=== PATIENT | female | born 1945 | race Caucasian/White ===

== ENCOUNTER 2018-10-07 09:17 | Day surgery (SDC) | payer MEDICARE, OTHER ==
[~2018-10-07] VITALS: Ht 160 cm; Wt 59.0 kg
[~2018-10-07 09:17] MED LIST: ASPI81TA26 PO; LEVO50TA5 PO; ROSU20TA5 PO; VITA50005 PO
[2018-10-07] MEDS: NS 1,000 ML IV ONE (09:53)
[2018-10-07] MEDS ORDERED: PROPOFOL 200 MG/20 ML VIAL As Ordered ONE (09:57)
[2018-10-07] MEDS ORDERED: LIDOCAINE 2% INJ 100 MG/5 ML SDV (FOR ANES.) As Ordered ONE (09:57)
--- NOTE | 2018-10-07 10:53 | ROOR ---
Patient Name: Heather Leach Procedure Date: 10/07/2018 10:24 AM Date of : 1945 Age: 73 Room: [facility] Gender: Female Note Status: Finalized Procedure: Total Colonoscopy to Cecum Indications: Screening for colorectal malignant neoplasm Providers: Isaac Cordon MD Referring MD: ANDRE DE LA ROSA MD Requesting Provider: Medicines: Monitored Anesthesia Care Complications: No immediate complications. Procedure: Pre-Anesthesia Assessment: - The heart rate, respiratory rate, oxygen saturations, blood pressure, adequacy of pulmonary ventilation, and response to care were monitored throughout the procedure. The Colonoscope was introduced through the anus and advanced to the cecum, identified by appendiceal orifice and ileocecal valve. The colonoscopy was performed without difficulty. The patient tolerated the procedure well. The quality of the bowel preparation was good. Findings: The perianal and digital rectal examinations were normal. Non-bleeding internal hemorrhoids were found during retroflexion. The hemorrhoids were Grade I (internal hemorrhoids that do not prolapse). Scattered small-mouthed diverticula were found in the recto-sigmoid colon, sigmoid colon and descending colon. The exam was otherwise without abnormality on direct and retroflexion views. Impression: - Non-bleeding internal hemorrhoids. - Diverticulosis in the recto-sigmoid colon, in the sigmoid colon and in the descending colon. - The examination was otherwise normal on direct and retroflexion views. - No specimens collected. - The exam was otherwise normal to the cecum. Recommendation: - Patient has a contact number available for emergencies. The signs and symptoms of potential delayed complications were discussed with the patient. Return to normal activities tomorrow. Written discharge instructions were provided to the patient. - Resume previous diet. - Continue present medications. - Repeat colonoscopy for symptoms only. - Return to referring physician. - The findings and recommendations were discussed with the patient's family. Isaac Cordon MD Isaac Cordon MD 10/07/2018 10:53:46 AM Electronically signed by Isaac Cordon MD Number of Addenda: 0 Note Initiated On: 10/07/2018 10:24 AM Estimated Blood Loss: Estimated blood loss: none.
[2018-10-07 11:10] VITALS: BP 116/81
== END 2018-10-07 11:21 | disposition home or self-care (01) ==
LOC: M OPP 09:17
PROVIDERS: ATTEND Internal Medicine Gastroenterology
DX: Z12.11 Encounter for screening for malignant neoplasm of colon (principal); K64.0 First degree hemorrhoids; K57.30 Diverticulosis of large intestine without perforation or abscess without bleeding; Z79.82 Long term (current) use of aspirin; Z79.899 Other long term (current) drug therapy

== ENCOUNTER 2020-11-22 15:43 | Inpatient (IN) | payer MEDICARE, OTHER ==
[~2020-11-22] VITALS: Ht 160 cm; Wt 62.7 kg
[2020-11-22] MEDS ORDERED: PIPERACILLIN/TAZOBACTAM SOD 3.375 GM in D5W MINI-BAG PLUS 50 ML IV SCH (18:00)
[2020-11-22 18:19] VITALS: BP 131/74
[2020-11-22] MEDS ORDERED: ONDANSETRON 4MG/2ML VIAL IV PRN (18:30)
[2020-11-22] MEDS ORDERED: ACETAMINOPHEN TAB 650MG DOSE (2X325MG) PO PRN (18:30)
[2020-11-22] MEDS ORDERED: NS 1,000 ML IV SCH (18:30)
[2020-11-22] MEDS ORDERED: MORPHINE 2 MG/ML 1ML VIAL (J2270) IV PRN (18:35)
[2020-11-22 19:42] LABS: HEMATOCRIT 35.8 % (36.0-47.0); HEMOGLOBIN 11.7 g/dl (12.0-15.5); MEAN CORPUSCULAR HEMOGLOBIN 29.3 pg (27.0-33.0); MEAN CORPUSCULAR HGB CONC 32.7 g/dl (32.0-36.5); MEAN CORPUSCULAR VOLUME 89.7 fl (80.0-96.0); PLATELET COUNT, AUTOMATED 291 10^3/uL (150-450); RED BLOOD COUNT 3.99 10^6/uL (4.00-5.40); WHITE BLOOD COUNT 6.4 10^3/uL (4.0-10.0)
[2020-11-22 20:02] LABS: ALBUMIN 3.3 GM/DL (3.2-5.2); ALT/SGPT 20 U/L (12-78); BILIRUBIN,TOTAL 0.4 MG/DL (0.2-1.0); BLOOD UREA NITROGEN 15 MG/DL (7-18); CALCIUM LEVEL 9.2 MG/DL (8.8-10.2); CARBON DIOXIDE LEVEL 24 MEQ/L (21-32); CHLORIDE LEVEL 107 MEQ/L (98-107); CREATININE FOR GFR 0.83 MG/DL (0.55-1.30); GLOMERULAR FILTRATION RATE > 60.0 (>39); GLUCOSE, FASTING 71 MG/DL (70-100); NT-PRO BNP 83 PG/ML (<125); POTASSIUM SERUM 4.1 MEQ/L (3.5-5.1); SODIUM LEVEL 139 MEQ/L (136-145); TOTAL PROTEIN 6.7 GM/DL (6.4-8.2)
[2020-11-22 21:00] VITALS: BP 144/64
[2020-11-22] MEDS ORDERED: ROSUVASTATIN 10 MG TAB (CRESTOR) PO SCH (21:00)
[2020-11-22] MEDS ORDERED: KETOROLAC 30 MG/ML 1ML VIAL IV PRN (21:05)
[2020-11-22] MEDS: PIPERACILLIN/TAZOBACTAM SOD 3.375 GM in D5W MINI-BAG PLUS 50 ML IV SCH (21:37)
[2020-11-23] MEDS ORDERED: UNRESOLVED CLARIFICATION ENTRY XX SCH (00:01)
[2020-11-23] MEDS ORDERED: ROSU20TA5 PO (00:10)
[2020-11-23] MEDS ORDERED: METR-265 PO (00:10)
[2020-11-23] MEDS ORDERED: SYNT75TA PO (00:10)
[2020-11-23] MEDS ORDERED: ERGO500029 PO (00:10)
[2020-11-23] MEDS ORDERED: ASPI-161 PO (00:10)
[2020-11-23] MEDS ORDERED: CIPR750T2 PO (00:10)
[2020-11-23] MEDS ORDERED: OYST500T91 PO (00:11)
[2020-11-23] MEDS ORDERED: ESSE250T PO (00:11)
[2020-11-23] MEDS ORDERED: HOME MED LIST COMPLETE! XX SCH (00:15)
--- NOTE | 2020-11-23 02:15 | HPEPDOC ---
General Date of Admission Nov 22, 2020 at 17:54 Date of Service: Nov 22, 2020 Chief Complaint abdominal pain Source: Patient History of Present Illness Ms. Treviño is a 75-year-old female with significant medical history of hypothyroidism, hyperlipidemia, diverticulosis and anemia who presents with abdominal pain/diverticulitis via direct admit. Patient reports that she has been at baseline until Friday she started having sensations of stomach pain and loose stool which escalated over the weekend. Patient describes the abdominal pain as generalized cramping with lower mid to left abdominal tenderness. She reports she has had "too many to count" episodes of diarrhea and even episodes of nocturnal stool incontinence as symptoms have escalated. Patient diagnosed w ith diverticulitis by her provider in order for p.o. antibiotics placed. Patient reports there was a delay in her getting p.o. antibiotics and that she was able to start them the following day with pharmacy availability. She reports that she has taken pills and reported no further diarrhea however - because she was having more stomach pains-she felt she was encouraged by provider to come in for IV antibiotics. Of note, patient without leukocytosis. She is normotensive, not tachycardic and afebrile. Home Medications Scheduled Aspirin (Aspirin EC) 81 Mg Tablet.dr, 81 MG PO QWEEK, (Reported) Calcium Carbonate/Vitamin D3 (Calcium 500-Vit D3 200 Tablet) 1 Each Tablet, 1 TAB PO DAILY, (Reported) Cefdinir (Cefdinir) 300 Mg Capsule, 300 MG PO BID Ergocalciferol (Vitamin D2) (Vitamin D2) 50,000 Units Cap, 50,000 UNITS PO QWEEK, (Reported) MONDAYS Levothyroxine Sodium (Synthroid) 75 Mcg Tablet, 75 MCG PO DAILY, (Reported) Magnesium Oxide (Magnesium Oxide) 250 Mg Tablet, 250 MG PO DAILY, (Reported) Metronidazole (Metronidazole) 500 Mg Tablet, 500 MG PO Q8H, (Reported) STARTED ON 11/20/20 Metronidazole (Flagyl) 500 Mg Tablet, 500 MG PO Q8H Rosuvastatin Calcium (Rosuvastatin Calcium) 20 Mg Tablet, 20 MG PO QHS, (Reported) Allergies Coded Allergies: No Known Allergies (Unverified , 09/29/18) Past Medical History Medical History hypothyroid, anemia, HDL, diverticulosis Surgical History tonsillectomy, hysterectomy Family History Significant Family History: Cancer Daughter- Ovarian cancer Social History * Smoker: Denies Alcohol: Denies Drugs: denies Psychosocial History: No pertinent psych hx A-FIB/CHADSVASC A-FIB History Current/History of A-Fib/PAF?: No Current PO Anticoag Therapy: No Review of Systems Constitutional: Reports: Fever, Malaise, Weakness, Fatigue; Denies: Chills, Night Sweats Eyes: Denies: Pain, Vision change ENT: Denies: Head Aches, Ear Pain, Dysphagia Skin: Denies: Rash, Lesions, Breakdown Pulmonary: Denies: Dyspnea, Cough Cardiovascular: Denies: Chest Pain, Palpitations, Orthopnea, Paroxysmal Noc. Dyspnea, Lt Headedness Gastrointestinal: Reports: Nausea, Abdominal Pain, Diarrhea; Denies: Vomiting Genitourinary: Denies: Dysuria, Frequency, Incontinence, Retention Hematologic: Denies: Bruising, Bleeding Excessively Musculoskeletal: Denies: Neck Pain, Back Pain, Joint Pain, Muscle Pain, Spasms Neurological: Denies: Weakness, Numbness, Change in speech, Confusion Psych: Reports: Mood Normal; Denies: Depression, Memory Issues Physical Examination General Exam: Positive: Alert, Cooperative, No Acute Distress Eye Exam: Positive: PERRLA, Conjunctiva & lids normal, EOMI; Negative: Sclera icteric ENT Exam: Positive: Atraumatic, Mucous membr. moist/pink, Pharynx Normal Neck Exam: Positive: Supple; Negative: JVD, thyromegaly Chest Exam: Positive: Clear to auscultation, Normal air movement Heart Exam: Positive: Rate Normal, Regular Rhythm, Normal S1, Normal S2; Negative: Murmurs, Rubs Telemetry: Positive: No significant arrhythmia Abdomen Exam: Positive: BS Hyperactive, Soft, Tenderness; Negative: Hepatospenomegaly Extremity Exam: Positive: Normal pulses; Negative: Clubbing, Cyanosis, Edema Skin Exam: Positive: Nl turgor and temperature; Negative: Breakdown, Lesion Neuro Exam: Positive: Normal Gait, Normal Speech, Cranial Nerves 3-12 NL, Reflexes 2+ Psych Exam: Positive: Mental status NL, Mood NL, Oriented x 3 Vital Signs Temp 98.6, 98% room air, respiratory rate 18, heart rate 77, blood pressure 144/60 Assessment/Plan 1. Acute Diverticulitis: -Monitor for worsening signs symptoms of infection -Empiric coverage -IV hydration with consideration -Clear liquid diet with advancement as tolerated -Symptom management/supportive care with antiemetics and analgesics -A.m. lab -Consider GI versus surgical consult if patient without improvement 2. Hypothyroid: Continue levothyroxine 3. Anemia: Hemoglobin 11.7/hematocrit 35.8. Patient reports history of anemia but uncertain regarding typical levels. Denies any blood in stool. -Will check anemia panel. -A.m. labs 4. Hyperlipidemia: Continue statin DVT Px: SCD CODE STATUS: Full code Dispo planning: Home once tolerating p.o. antibiotics can be deescalated Plan / VTE VTE Prophylaxis Ordered?: Yes JESICA POST NP Nov 22, 2020 18:52 HARSHA HACKETT MD Nov 24, 2020 05:54
[2020-11-23] MEDS: PIPERACILLIN/TAZOBACTAM SOD 3.375 GM in D5W MINI-BAG PLUS 50 ML IV SCH (04:42)
[2020-11-23 06:00] VITALS: BP 103/66
[2020-11-23] MEDS ORDERED: LEVOTHYROXINE 75MCG TABLET (0.075MG) PO SCH (06:00)
[2020-11-23 06:05] LABS: HEMATOCRIT 34.8 % (36.0-47.0); HEMOGLOBIN 11.4 g/dl (12.0-15.5); MEAN CORPUSCULAR HEMOGLOBIN 29.7 pg (27.0-33.0); MEAN CORPUSCULAR HGB CONC 32.8 g/dl (32.0-36.5); MEAN CORPUSCULAR VOLUME 90.6 fl (80.0-96.0); PLATELET COUNT, AUTOMATED 274 10^3/uL (150-450); RED BLOOD COUNT 3.84 10^6/uL (4.00-5.40); WHITE BLOOD COUNT 5.5 10^3/uL (4.0-10.0)
[2020-11-23 06:22] LABS: BLOOD UREA NITROGEN 14 MG/DL (7-18); CALCIUM LEVEL 8.8 MG/DL (8.8-10.2); CARBON DIOXIDE LEVEL 25 MEQ/L (21-32); CHLORIDE LEVEL 110 MEQ/L (98-107); CREATININE FOR GFR 0.94 MG/DL (0.55-1.30); GLOMERULAR FILTRATION RATE > 60.0 (>39); GLUCOSE, FASTING 71 MG/DL (70-100); POTASSIUM SERUM 3.7 MEQ/L (3.5-5.1); SODIUM LEVEL 141 MEQ/L (136-145)
[2020-11-23 06:29] LABS: PERCENT SATURATION 38.1 % (13.2-45.0)
[2020-11-23 06:33] LABS: ATYPICAL LYMPH 2 % (0-5); EOSINOPHILS 1 % (0-3); LYMPHOCYTES 50 % (16-44); MONOCYTES 2 % (0-5); NEUTROPHILS 45 % (28-66)
[2020-11-23 06:34] LABS: PLATELET ESTIMATE NORMAL (NORMAL)
[2020-11-23 08:00] VITALS: BP 110/68
[2020-11-23] MEDS ORDERED: LACTOBACILLUS ACIDOPHILUS CAP (BACID) PO SCH (08:00)
[2020-11-23] MEDS: metroNIDAZOLE (FLAGYL) 500MG TABLET PO SCH ×2 (08:44→14:27)
[2020-11-23] MEDS ORDERED: PANTOPRAZOLE 40MG VIAL (C9113 PER 1) IV SCH (09:00)
[2020-11-23] MEDS ORDERED: CEFDINIR 300 MG CAP (OMNICEF) PO SCH (09:00)
[2020-11-23] MEDS ORDERED: CALCIUM/VITAMIN D 500 MG TAB PO SCH (09:00)
[2020-11-23] MEDS ORDERED: ASPIRIN 81MG ENTERIC TABLET PO SCH (09:00)
[2020-11-23 10:33] LABS: FOLATE 18.8 NG/ML (>5.4)
[2020-11-23 10:59] LABS: C REACTIVE PROTEIN QUANTITATIV 4.39 MG/DL (0.00-0.30)
[2020-11-23] MEDS ORDERED: FLAG500T PO (11:01)
[2020-11-23] MEDS ORDERED: CEFD300CAP PO (11:01)
[2020-11-23 12:00] VITALS: BP 116/78
[2020-11-23 13:22] LABS: C REACTIVE PROTEIN QUANTITATIV 7.01 MG/DL (0.00-0.30)
[2020-11-23 14:00] VITALS: BP 115/55
--- NOTE | 2020-11-23 14:57 | DS.PDOC ---
Discharge Summary General Date of Admission Nov 22, 2020 at 17:54 Date of Discharge November 23, 2020 Attending Physician: KAYLEY RUIZ MD Discharge Summary PROCEDURES PERFORMED DURING STAY: None. ADMITTING/DISCHARGE DIAGNOSES: - Diverticulitis - Hypothyroidism - Anemia - Hyperlipidemia - H/o diverticulosis COMPLICATIONS/CHIEF COMPLAINT: Abdominal pain and diarrhea; direct admission for diverticulitis. HISTORY OF PRESENT ILLNESS: Ms. Leach is a 75-year-old female with a h/o diverticulosis, hyperthyroidism, HLD, and chronic anemia presented with lethargy, abdominal pain, and profuse, watery diarrhea. Per patients PCP, outpatient CT abd/pelvis resulted diverticulitis. She was given PO Cipro and Flagyl. She only took 1 pill each before coming to the ED. Patient was directed admitted and switched to IV Zosyn. Toradol and morphine were ordered for pain as needed. She was seen at bedside by the hospitalist service. She reports lethargy and mild lower abdominal pain. She has some flatulence but still reports small amounts of loose stool. She denies fever, chills, headache, cough, SOB, CP, palpitations, N/V, dysphagia, hematuria, dysuria, pyuria, and hematochezia. HOSPITAL COURSE: # Diverticulitis -Patient presented with lower abdominal pain and diarrhea, but she is afebrile and nontender to abdominal palpation. She took PO Cipro and Flagyl 1X. -She also has h/o diverticulosis that was found on outpatient routine colonoscopy -CRP 4.39 downtrended since admission; admin CRP 7.01 -C/w acetaminophen as needed for pain. -Advance diet as tolerated. -Patient is encouraged to increase oral hydration. -Switched from IV zosyn to PO cefdinir and flagyl. PO abx should be continued outpatient for 9 days. -F/u within 7 days with PCP upon discharge. # H/o diverticulosis -Per patient, diverticulosis was discovered on routine outpatient colonoscopy. -Should f/u outpatient with PCP as necessary. # Hypothyroidism -C/w home Synthroid -Should f/u outpatient with PCP as necessary. # HLD -C/w home rosuvastatin -Should f/u outpatient with PCP as necessary. # Chronic anemia of unknown origin -Reported h/o anemia of unknown origin. -RBC 3.84, Hgb 11.4, Hct 34.8 -Should f/u outpatient with PCP for full workup. DISCHARGE MEDICATIONS: Please see below. ALLERGIES: Please see below. PHYSICAL EXAMINATION ON DISCHARGE: VITAL SIGNS: Please see below. GENERAL APPEARANCE: Patient is a pleasant elderly female lying in bed in no acute distress. HEENT: NC, AT. PERRLA, EOMI. Sclera non-icteric. Mucus membranes moist. Uvula is midline. CARDIOVASCULAR: RRR. No obvious murmurs, rubs, or gallops. LUNGS: Clear to auscultation bilaterally. No wheezing, rales, or rhonchi heard. ABDOMEN: Soft abdomen, nontender to palpation in all 4 quadrants. Positive bowel sounds. EXTREMITIES: Radial, dorsalis pedis, and posterior tibialis pulses appreciated bilaterally. No LE edema appreciated. Nontender to palpation bilaterally. PSYCHIATRIC: Mood appears stable. LABORATORY DATA: Please see below. IMAGING: None PROGNOSIS: Fair ACTIVITY: As tolerated DIET: As tolerated DISCHARGE PLAN: - Please complete 9-day course of Cefdinir 300mg PO BID and Flagyl 500mg PO Q8H for diverticulitis. - Please c/w home medications as indicated. - Please continue oral hydration and rest. - Please f/u with PCP within 7 days for diverticulitis resolution. - Please return to the hospital if symptoms worsen or if new symptoms develop. DISCHARGE INSTRUCTIONS: - Please complete 9-day course of Cefdinir 300mg PO BID and Flagyl 500mg PO Q8H for diverticulitis. - Please c/w home medications as indicated. - Please continue oral hydration and rest. - Please f/u with PCP within 7 days for diverticulitis resolution. - Please return to the hospital if symptoms worsen or if new symptoms develop. ITEMS TO FOLLOWUP ON ON OUTPATIENT: - Diverticulitis - Abx compliance - Anemia workup as necessary - F/u h/o diverticulosis, hypothyroidism, HLD, chronic anemia as necessary with PCP DISCHARGE CONDITION: Stable TIME SPENT ON DISCHARGE: 30 minutes. Vital Signs/I&Os Vital Signs Date Time Temp Pulse Resp B/P (MAP) Pulse Ox O2 Delivery O2 Flow Rate FiO2 11/23/20 12:00 98.3 76 18 116/78 (91) 98 Room Air I&O- Last 24 Hours up to 6 AM 11/23/20 06:00 Intake Total 700 ml Output Total 300 ml Balance 400 ml Laboratory Data Labs 24H Laboratory Tests 2 11/22/20 19:21: Nucleated Red Blood Cells % (auto) 0.0, Anion Gap 8, Glomerular Filtration Rate > 60.0, Lactic Acid Level 0.8, Calcium Level 9.2, Magnesium Level 2.0, Total Bilirubin 0.4, Aspartate Amino Transf (AST/SGOT) 15, Alanine Aminotransferase (ALT/SGPT) 20, Alkaline Phosphatase 40L, C-Reactive Protein, Quantitative 7.01H, IU-Bbr-K-Type Natriuretic Peptide 83, Total Protein 6.7, Albumin 3.3, Albumin/Globulin Ratio 1.0L 11/23/20 05:47: Nucleated Red Blood Cells % (auto) 0.0, Anion Gap 6L, Glomerular Filtration Rate > 60.0, Calcium Level 8.8, C-Reactive Protein, Quantitative 4.39H, Neutrophils (%) (Auto) , Neutrophils 45, Lymphocytes (Manual) 50H, Monocytes (Manual) 2, Eosinophils (Manual) 1, Atypical Lymphocytes 2, Red Blood Cell Morphology NORMAL , Platelet Estimate NORMAL, Iron Level 64, Total Iron Binding Capacity 168L, Transferrin % Saturation 38.1, Ferritin 223, Vitamin B12 Level 1536H, Folate 18.8 11/23/20 11:12: Coronavirus (COVID-19)(PCR) NEGATIVE CBC/BMP Laboratory Tests 11/22/20 19:21 11/23/20 05:47 Microbiology Microbiology 11/22/20 Blood Culture, Received Pending Discharge Medications Scheduled Aspirin (Aspirin EC) 81 Mg Tablet.dr, 81 MG PO QWEEK, (Reported) Calcium Carbonate/Vitamin D3 (Calcium 500-Vit D3 200 Tablet) 1 Each Tablet, 1 TAB PO DAILY, (Reported) Cefdinir (Cefdinir) 300 Mg Capsule, 300 MG PO BID Ergocalciferol (Vitamin D2) (Vitamin D2) 50,000 Units Cap, 50,000 UNITS PO QWEEK, (Reported) MONDAYS Levothyroxine Sodium (Synthroid) 75 Mcg Tablet, 75 MCG PO DAILY, (Reported) Magnesium Oxide (Magnesium Oxide) 250 Mg Tablet, 250 MG PO DAILY, (Reported) Metronidazole (Metronidazole) 500 Mg Tablet, 500 MG PO Q8H, (Reported) STARTED ON 11/20/20 Metronidazole (Flagyl) 500 Mg Tablet, 500 MG PO Q8H Rosuvastatin Calcium (Rosuvastatin Calcium) 20 Mg Tablet, 20 MG PO QHS, (Reported) Allergies Coded Allergies: No Known Allergies (Unverified , 09/29/18) GME ATTESTATION GME ATTESTATION My faculty preceptor for this patient encounter was physically present during the encounter and was fully available. All aspects of the patient interview, examination, medical decision making process, and medical care plan development were reviewed and approved by the faculty preceptor. The faculty preceptor is aware and concurs with the plan as stated in the body of this note and will attest to such by his/her cosignature. ATTENDING NOTE I, Kayley Ruiz, have independently examined this patient and performed my own physical exam, as well as reviewed the documentation and edited where necessary with the resident. For medical students we have performed the physical exam together and discussed medical decision making and I have verified the history. I have discussed in detail with the resident / student the findings and plan of treatment as documented by the resident / student and edited their note. I agree with their findings and treatment plan and have edited their documentation. I will continue to follow the patient during this hospital stay. Time spent discharge 35 minutes NIGEL CÁRDENAS OMS-3 Nov 23, 2020 14:57 KAYLEY RUIZ MD Nov 23, 2020 15:02
[2020-11-24] MEDS ORDERED: OMEPRAZOLE 20 MG CAP PO SCH (09:00)
== END 2020-11-23 15:34 | disposition home or self-care (01) | DRG 392 ==
LOC: M PCU 17:54 → M MSPAV 20:10
PROVIDERS: ADMIT Internal Medicine; ATTEND Internal Medicine
DX: K57.92 Diverticulitis of intestine, part unspecified, without perforation or abscess without bleeding (principal); E03.9 Hypothyroidism, unspecified; D64.9 Anemia, unspecified; E78.5 Hyperlipidemia, unspecified; Z79.82 Long term (current) use of aspirin; Z79.899 Other long term (current) drug therapy

== ENCOUNTER → 2024-09-07 | Outpatient (CLI) | payer MEDICARE, OTHER ==
[~2024-09-07] MED LIST changes: +ASPI-615 PO; +CEFD300CAP PO; +CIPR750T2 PO; +ERGO500029 PO; +FLAG500T PO; +MAGN250T17 PO; +METR-265 PO; +OYST500T91 PO; -ROSU20TA5 PO; +ROSU20TA86 PO; +SYNT75TA PO
[2024-09-07 10:44] LABS: CREATININE FOR GFR 1.04 MG/DL (0.55-1.30); GLOMERULAR FILTRATION RATE 55.4 (>39)
== END ==
LOC: M LAB 09:33
PROVIDERS: ATTEND Surgery
DX: K40.90 Unilateral inguinal hernia, without obstruction or gangrene, not specified as recurrent (principal)

== ENCOUNTER → 2024-09-13 | Outpatient (CLI) | payer MEDICARE, OTHER ==
[~2024-09-13] MED LIST changes: +ISOVUE-370 76% 100 ML VIAL As Ordered ONE
== END ==
LOC: M RAD 16:33
PROVIDERS: ATTEND Surgery
DX: K40.90 Unilateral inguinal hernia, without obstruction or gangrene, not specified as recurrent (principal); K57.90 Diverticulosis of intestine, part unspecified, without perforation or abscess without bleeding; N28.1 Cyst of kidney, acquired
CPT/HCPCS: 74177; Q9967

== ENCOUNTER 2024-11-01 09:45 | Day surgery (SDC) | payer MEDICARE, OTHER ==
[~2024-11-01] VITALS: Ht 160 cm; Wt 64.3 kg
[~2024-11-01 09:45] MED LIST changes: +COQ150CH PO; -ISOVUE-370 76% 100 ML VIAL As Ordered ONE; +KETOROLAC 30 MG/ML 1 ML VIAL As Ordered ONE; +LIDOCAINE 2% 100 MG/5 ML SDV (FOR ANES.) As Ordered ONE; +ONDANSETRON 4MG 2ML VIAL As Ordered ONE; +ROCURONIUM BROMIDE 50MG/5ML VIAL As Ordered ONE; +dexAMETHasone 4 MG/ML 1 ML VIAL As Ordered ONE
[2024-11-01] MEDS ORDERED: LR 1,000 ML IV SCH ×2 (10:00→12:00)
[2024-11-01] MEDS ORDERED: ACETAMINOPHEN 1000MG/100ML IV BAG As Ordered ONE (10:59)
[2024-11-01] MEDS ORDERED: HYDROMORPHONE HCL 0.5 MG/0.5 ML SYRINGE IV PRN (12:00)
[2024-11-01] MEDS ORDERED: ceFAZolin SOD 2 GM IV ONCE IV ONE (12:00)
[2024-11-01 13:55] VITALS: BP 142/72; TEMP 98.3; O2SAT 95
== END 2024-11-01 14:00 | disposition home or self-care (01) ==
LOC: M SDC 09:45
PROVIDERS: ATTEND Surgery
DX: K40.90 Unilateral inguinal hernia, without obstruction or gangrene, not specified as recurrent (principal); E03.9 Hypothyroidism, unspecified; E78.2 Mixed hyperlipidemia; Z79.899 Other long term (current) drug therapy; Z79.890 Hormone replacement therapy; Z79.82 Long term (current) use of aspirin; Z90.710 Acquired absence of both cervix and uterus; Z90.89 Acquired absence of other organs; Z87.19 Personal history of other diseases of the digestive system
CPT/HCPCS: 49650; C1781; J0131; J0665; J0690; J1100; J1885; J2405; J3010